=== PATIENT | female | born 1945 | race Caucasian/White ===

== ENCOUNTER 2025-06-26 07:46 | Emergency (ER) | payer OTHER ==
[2025-06-26 08:26] VITALS: BP 148/84; PULSE 71; RESP 20; TEMP 97.7; BMI 26.4
[2025-06-26] MEDS ORDERED: LIDOCAINE 5% TOPICAL PATCH ONE (08:32)
[2025-06-26] MEDS ORDERED: ACETAMINOPHEN 500 MG TABLET (FP) ONE (08:32)
[2025-06-26] MEDS ORDERED: IBUPROFEN 600 MG TABLET (FP) PO ONE (08:32)
[2025-06-26] MEDS: IBUPROFEN 600 MG TABLET (FP) PO ONE (08:51)
[2025-06-26] MEDS: ACETAMINOPHEN 325 MG TABLET (FP) PO ONE (08:51)
[2025-06-26] MEDS: LIDOCAINE 5% TOPICAL PATCH TP ONE (08:52)
== END 2025-06-26 10:29 | disposition home or self-care (01) ==
LOC: FER 07:46
DX: S20.212A Contusion of left front wall of thorax, initial encounter (principal); S80.02XA Contusion of left knee, initial encounter; W01.198A Fall on same level from slipping, tripping and stumbling with subsequent striking against other object, initial encounter
CPT/HCPCS: 71111-TC-FY; 73562-TC-LT-FY; 93005; 99284-25